=== PATIENT | male | born 1965 | race Hispanic/Latino ===

== ENCOUNTER 2020-10-14 11:58 | Emergency (ER) | payer BC ==
[~2020-10-14] VITALS: Ht 176.5 cm; Wt 89.8 kg
[2020-10-14] MEDS ORDERED: DIAZEPAM 5 MG TAB PO ONE (12:45)
[2020-10-14] MEDS ORDERED: KETOROLAC TROMETHAMINE 60 MG/2 ML VIAL IM ONE (12:45)
[2020-10-14] MEDS ORDERED: HYDROCODONE/APAP 7.5MG-325MG 1 EA TAB PO ONE (12:45)
--- NOTE | 2020-10-14 13:07 | Emergency Department Note ---
History of Present Illnes History of Present Illness Chief Complaint: Back Pain History of Present Illness This is a 55 year old male Pt arrived to the ER with c/o lower center back pain x2 days. Describes as a sharp constant pain. Denies any injury. States at one point he had a sharp pain that ran down his left leg. reports pain is worse with movement. Denies loss of bowel or bladder. Reports last dose of Ibuprofen was today 0700. No trauma. Historian: Patient Arrival Mode: Car [employer] Administrator Required: No Onset (how long ago): day(s) (2) Location: lower back Quality: pain Radiation: Reports non-radiation Severity: severe Onset quality: sudden Timing of current episode: constant Progression: unchanged Chronicity: new Context: Denies recent illness Relieving factors: none Exacerbating factors: none Associated symptoms: Reports denies other symptoms Past Medical/Family History Physician Review I have reviewed the patient's past medical and family history. Any updates have been documented here. Past Medical History Recent Fever: No Clinical Suspicion of Infectio: No New/Unexplained Change in Ment: No Past Medical History: None Other Surgery: Exploratory abdominal surgery as a child Social History Smoking Cessation: Former smoker Counseling Performed: No Alcohol Use: None Any Illegal Drug Use: No TB Exposure/Symptoms: No Physically hurt or threatened: No Family History Family history of heart diseas: No Other Any Pre-Existing Lines (PICC,: No Review of Systems Review of Systems Constitutional: Reports no symptoms EENTM: Reports no symptoms Cardiovascular: Reports no symptoms Respiratory: Reports no symptoms Gastrointestinal: Reports no symptoms Genitourinary: Reports no symptoms Musculoskeletal: Reports as per HPI, Reports back pain Integumentary: Reports no symptoms Neurological: Reports no symptoms Psychological: Reports no symptoms Endocrine: Reports no symptoms Hematological/Lymphatic: Reports no symptoms Physical Exam Related Data Allergies: Coded Allergies: No Known Allergies (Unverified , 10/14/20) Triage Vital Signs Vital Signs Date Time Temp Pulse Resp B/P (MAP) Pulse Ox O2 Delivery O2 Flow Rate FiO2 10/14/20 12:01 98.3 74 17 148/90 98 Room Air Vital signs reviewed: Yes Physical Exam CONSTITUTIONAL Constitutional: Present well-developed, Present well-nourished HENT HENT: Present normocephalic, Present atraumatic, Present oropharynx clear/moist, Present nose normal HENT L/R: Present left ext ear normal, Present right ext ear normal EYES Eyes: Reports PERRL, Reports conjunctivae normal NECK Neck: Present ROM normal PULMONARY Pulmonary: Present effort normal, Present breath sounds normal CARDIOVASCULAR Cardiovascular: Present regular rhythm, Present heart sounds normal, Present capillary refill normal, Present normal rate GASTROINTESTINAL Abdominal: Present soft, Present nontender, Present bowel sounds normal GENITOURINARY Genitourinary: Present exam deferred SKIN Skin: Present warm, Present dry MUSCULOSKELETAL Musculoskeletal: Present ROM normal, Present tenderness (midline lumbar spine and bilat paraspinal muscle spasm), Present other (nl DTR's) NEUROLOGICAL Neurological: Present alert, Present oriented x 3, Present no gross motor or sensory deficits; Absent cranial nerve deficit, Absent sensory deficit, Absent weakness PSYCHOLOGICAL Psychological: Present mood/affect normal, Present judgement normal Results Imaging Imaging Comments pt refused Xrays Assessment & Plan Medical Decision Making MDM back pain Reassessment Reassessment Pain improved with meds, DC home with Toradol, Tyl #3, Robaxin, Medrol dose cara, F/U PCP Saturday Assessment & Plan Final Impression: (1) Low back pain Depart Disposition: HOME, SELF-CARE Last Vital Signs Date Time Temp Pulse Resp B/P (MAP) Pulse Ox O2 Delivery O2 Flow Rate FiO2 10/14/20 12:01 98.3 74 17 148/90 98 Room Air Medications in the ED Ketorolac Tromethamine 60 mg ONCE ONCE IM ; Start 10/14/20 at 12:45; Stop 10/14/20 at 12:46; Status DC Acetaminophen/ Hydrocodone Bitart 1 ea NOW ONCE PO ; Start 10/14/20 at 12:45; Stop 10/14/20 at 12:46; Status DC Diazepam 5 mg ONCE ONCE PO ; Start 10/14/20 at 12:45; Stop 10/14/20 at 12:46; Status DC FORTINO ALONZO MD Oct 14, 2020 13:07
--- OUTSIDE RECORDS SUMMARY | 2020-10-15 10:05 | XMS REPORT | Continuity of Care Document ---
Author Author [facility] t Organization [facility] Address [address] [place] [address] Phone Unavailable Care Team Providers Care Enrollment Representative Name Role Phone NONSTAFF PCP Unavailable Payers Payer Name Policy Type Policy Number Effective Date Expiration Date S kalyn [employer] [place] Ppo [id number] 2019 00:00:00 [facility] Problems Condition Name Condition Details Condition Category Status Onset Date Resolution Date Last Treatment Date Treating Clinician Comments Source Testicular hypofunction Testicular Hypofunction Problem Active 2020-09-09 00:00:[address] [facility] Body mass index 30+ - obesity Body Mass Index 30+ - Obesity Problem Active 2020-09-09 00:00:[address] [facility] Obesity Obesity Problem Active 2020-09-09 00:00:[address] [facility] Reducible umbilical hernia Reducible Umbilical Hernia Problem Active 2020-09-09 00:00:[address] [facility] Diverticulosis of colon Diverticulosis of Colon Problem Active 2020-09-09 00:00:[address] [facility] Increased estradiol level Increased Estradiol Level Problem Ac tive 2020-09-09 00:00:[address] [facility] Internal hemorrhoids Internal Hemorrhoids Problem Active 00:00:00 [facility] Pract ice Diverticulosis of sigmoid colon Diverticulosis of Sigmoid Colon Pro blem Active 2019-12-01 00:00:[address] [facility] Hypogonadotropic hypogonadism Hypogonadotropic Hypogonadism Problem Active 2019-10-16 00:00:[address] [facility] Secondary polycythemia Secondary Polycythemia Problem Active 2019-10-16 00:00:[address] [facility] Anxiety disorder Anxiety Disorder Problem Active 2019-10-16 00:00:[address] [facility] Dysthymia Dysthymia Problem Active 2019-10-16 00:00:[address] [facility] Primary erectile dysfunction Primary Erectile Dysfunction Problem Active 2019-10-16 00:00:[address] [facility] Elevated liver enzymes level Elevated Liver Enzymes Level Problem Active 2019-10-16 00:00:[address] [facility] Attention deficit hyperactivity disorder, 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, Predominantly Inattentive Type Problem Active 2019-05-22 00:00:[address] [facility] Estradiol excess Estradiol excess Disease Active 2018-10-07 00:00:00 Jassi Esparza Mixed hyperlipidemia Mixed hyperlipidemia Disease Active 00:00:00 Jassi Esparza Testicular hypogonadism Testicular hypogonadism Disease Active 2018-10-07 00:00:[address] Benign non-nodular prostatic hyperplasia Benign non-no dular prostatic hyperplasia Disease Active 2017-04-19 00:00:00 Jassi Esparza Erectile dysfunction Erectile dysfunction Disease Active 00:00:00 Jassi Esparza BMI 28.0-28.9,adult BMI 28.0-28.9,adult Disease Active 2017-04-19 00:00 :00 Jassi Esparza Degeneration of lumbar intervertebral disc Degeneratio n of lumbar intervertebral disc Disease Active 2017-04-19 00:00:00 Griselda Esparza Seasonal allergic rhinitis due to pollen Seasonal yevgeniy rgic rhinitis due to pollen Disease Active 2017-04-19 00:00:00 Griselda Esparza DDD (degenerative disc disease), lumbar DDD (degenerative di sc disease), lumbar Disease Active 2016-12-31 00:00:00 Jassi Esparza Acute midline low back pain without sciatica Acute mid line low back pain without sciatica Disease Active 2016-12-18 00:00:00 Silver Esparza Attention deficit disorder of adult with hyperactivity Attention deficit disorder of adult with hyperactivity Disease Active 2016-01-27 00:00:00 Jassi Esparza Low back pain Problem Active I [facility] Allergies, Adverse Reactions, Alerts This patient has no known allergies or adverse reactions. Family History Family Member Diagnosis Comments Start Date Stop Date Source Natural father No Known Problems Silver Esparza Natural mother No Known Problems Silver Esparza Social History Social Habit Start Date Stop Date Quantity Comments Source Sex Assigned At Silver Esparza Tobacco use and exposure 2018-10-07 00:00:00 2018-10-07 00:00:00 Radha Esparza Alcohol intake 2018-10-07 00:00:00 2018-10-07 00:00:00 Current non-drinker of alcohol (finding) Jassi Esparza Alcohol Comment 2016-08-28 00:00:00 2016-08-28 00:00:00 glass of wine every now and then Jassi Esaprza Smoking Status Start Date Stop Date Source Never smoker Jassi catalan Medications Ordered Medication Name Filled Medication Name Start Date Stop Da te Current Medication? Ordering Clinician Indication Dosage Frequency Signature (SIG) Comments Components Source dextroamphetamine-amphetamine (ADDERALL) 10 mg tablet 2018-11-07 00:00:00 Yes 20mg QD Take 2 tablets (20 mg total) by mouth daily for 30 days. Max Daily Amount: 20 mg Jassi Esparza dextroamphetamine-amphetamine (ADDERALL) 20 mg tablet 2018-11-06 00:00:00 Yes TAKE 1 TABLET BY MOUTH TWICE DAILY Jassi Esparza alprazolam 0.5 mg tablet Take 1 tablet every 8 hours b y oral route as needed. alprazolam 0.5 mg tablet Take 1 tablet every 8 hours by oral route as needed. No alprazolam 0.5 mg tablet Take 1 tablet every 8 hours by oral route as needed. [facility] mg tablet TAKE 1 TABLET BY MOUTH TWICE W MICKEY anastrozole 1 mg tablet TAKE 1 TABLET BY MOUTH TWICE WEEKLY No anastrozole 1 mg tablet TAKE 1 TABLET BY MOUTH TWICE WEEKLY [facility] dextroamphetamine-amphetamine 20 mg tabl et Take 1 tablet twice a day by oral route for 30 days. dextroamphetamine-amphetamine 20 mg tabl et Take 1 tablet twice a day by oral route for 30 days. No dextroamphetamine- amphetamine 20 mg tablet Take 1 tablet twice a day by oral route for [address] [facility] phentermine 37.5 mg tablet Take 1 tablet every day by oral route for 30 days. phentermine 37.5 mg tablet Take 1 tablet every day by oral route for 30 days. No 1 Q1D phentermine 37 .5 mg tablet Take 1 tablet every day by oral route for 30 days. [facility] tadalafil 20 mg tablet TAKE 1 TABLET DAILY NEEDED t adalafil 20 mg tablet TAKE 1 TABLET DAILY NEEDED No tadalafil 20 mg tablet TAKE 1 TABLET DAILY NEEDED [facility] testosterone cypionate 200 mg/mL intramu scular oil INJECT 1 ML EVERY WEEK BY INTRAMUSCULAR ROUTE. testosterone cypionate 200 mg/mL intramu scular oil INJECT 1 ML EVERY WEEK BY INTRAMUSCULAR ROUTE. No testosterone cypionate 200 mg/mL intramuscular oil INJECT 1 ML EVERY WEEK BY INTRAMUSCULAR ROUTE. [facility] Practice Vital Signs Vital Name Observation Time Observation Value Comments Source BP Diastolic 2020-09-09 00:00:00 87 mm[Hg] [facility] Height 2020-09-09 00:00:00 68.5 [in_i] [facility] BMI (Body Mass Index) 2020-09-09 00:00:00 31 kg/m2 [facility] BP Systolic 2020-09-09 00:00:00 135 mm[Hg] [facility] Body Weight 2020-09-09 00:00:00 207.2 [lb_av] [facility] BP Diastolic 2020-08-24 00:00:00 90 mm[Hg] [facility] Height 2020-08-24 00:00:00 68.5 [in_i] [facility] BMI (Body Mass Index) 2020-08-24 00:00:00 30.9 kg/m2 [facility] BP Systolic 2020-08-24 00:00:00 137 mm[Hg] [facility] Body Weight 2020-08-24 00:00:00 206.4 [lb_av] [facility] BP Diastolic 2020-05-09 00:00:00 85 mm[Hg] [facility] Height 2020-05-09 00:00:00 68.5 [in_i] [facility] BMI (Body Mass Index) 2020-05-09 00:00:00 29.3 kg/m2 [facility] BP Systolic 2020-05-09 00:00:00 130 mm[Hg] [facility] Body Weight 2020-05-09 00:00:00 195.8 [lb_av] [facility] BP Diastolic 2020-01-19 00:00:00 82 mm[Hg] [facility] Height 2020-01-19 00:00:00 68.5 [in_i] [facility] BMI (Body Mass Index) 2020-01-19 00:00:00 30.1 kg/m2 [facility] BP Systolic 2020-01-19 00:00:00 127 mm[Hg] [facility] Body Weight 2020-01-19 00:00:00 201.2 [lb_av] [facility] BP Diastolic 2019-12-21 00:00:00 83 mm[Hg] [facility] Height 2019-12-21 00:00:00 68.5 [in_i] [facility] BMI (Body Mass Index) 2019-12-21 00:00:00 29.5 kg/m2 [facility] BP Systolic 2019-12-21 00:00:00 120 mm[Hg] [facility] Body Weight 2019-12-21 00:00:00 197.2 [lb_av] [facility] BP Diastolic 2019-10-16 00:00:00 89 mm[Hg] [facility] Height 2019-10-16 00:00:00 68.5 [in_i] [facility] BMI (Body Mass Index) 2019-10-16 00:00:00 29.4 kg/m2 [facility] BP Systolic 2019-10-16 00:00:00 135 mm[Hg] [facility] Body Weight 2019-10-16 00:00:00 196.4 [lb_av] [facility] BP Diastolic 2019-05-22 00:00:00 84 mm[Hg] [facility] Height 2019-05-22 00:00:00 70 [in_i] [facility] BMI (Body Mass Index) 2019-05-22 00:00:00 28 kg/m2 [facility] BP Systolic 2019-05-22 00:00:00 135 mm[Hg] [facility] Body Weight 2019-05-22 00:00:00 194.8 [lb_av] [facility] BP Diastolic 2019-02-06 00:00:00 68 mm[Hg] [facility] Height 2019-02-06 00:00:00 70 [in_i] [facility] BMI (Body Mass Index) 2019-02-06 00:00:00 28.4 kg/m2 [facility] BP Systolic 2019-02-06 00:00:00 132 mm[Hg] [facility] Body Weight 2019-02-06 00:00:00 198 [lb_av] [facility] Oxygen saturation by Pulse oximetry 2020-10-14 14:26:00 100 /min [facility] Weight 2020-10-14 12:01:00 198 [lb_av] [facility] BMI (Body Mass Index) 2020-10-14 12:01:00 28.8 kg/m2 [facility] Procedures Procedure Date / Time Performed Performing Clinician Sourc e electrocardiogram 2020-09-09 00:00:00 [facility] X-RAY OF ABDOMEN 1 VIEW 2020-08-24 00:00:00 [facility] CT, abdomen + pelvis, w/ contrast 2020-08-24 00:00:[address] [facility] Colonoscopy 2019-11-26 00:00:00 [facility] Plan of Care Planned Activity Planned Date Details Comments Source Diagnostic Test Pending 2020-09-09 00:00:00 urinalysis, dips tick [code = urinalysis, dipstick] [facility] Diagnostic Test Pending 2020-09-09 00:00:00 CBC w/ auto diff [code = CBC w/ auto diff] [facility] Diagnostic Test Pending 2020-09-09 00:00:00 CMP, serum or pl asma [code = CMP, serum or plasma] [facility] Diagnostic Test Pending 2020-09-09 00:00:00 lipid panel, ser um [code = lipid panel, serum] [facility] Diagnostic Test Pending 2020-09-09 00:00:00 TSH, serum or pl asma [code = TSH, serum or plasma] [facility] Diagnostic Test Pending 2020-09-09 00:00:00 PSA, serum or pl asma [code = PSA, serum or plasma] [facility] Diagnostic Test Pending 2020-09-09 00:00:00 hepatitis C viru s RNA, quant, PCR, serum or plasma [code = hepatitis C virus RNA, quant, PCR, serum or plasma] [facility] Diagnostic Test Pending 2020-09-09 00:00:00 testosterone, fr ee + total, serum [code = testosterone, free + total, serum] [facility] Test Pending 2020-09-09 00:00:00 estradiol, serum [code = estradiol, serum] [facility] Future Scheduled Test 2020-06-25 00:00:00 INFLUENZA VACCINE [code = INFLUENZA VACCINE] [facility] Scheduled Test 2016 00:00:00 COLONOSCOPY SCREEN ING [code = COLONOSCOPY SCREENING] [facility] Scheduled Test 2016 00:00:00 SHINGLES VACCINES (#1) [code = SHINGLES VACCINES (#1)] [facility] Back Pain [facility] Encounters Start Date/Time End Date/Time Encounter Type Admission Type Attendi [facility] Care Department Encounter ID Source 2020-10-14 12:20:00 2020-10-14 14:28:00 Departed Emergency Room [facility] [id number] [facility] 2020-09-09 00:00:00 2020-09-09 00:00:00 Misha Esteban MD: [address], [place] [address], Ph. V FP OR - [facility] - [facility] [id number] [facility] 2020-08-24 00:00:00 2020-08-24 00:00:00 Misha Esteban MD: [address], [place] [address], Ph. V FP OR - [facility] - [facility] [place] [id number] [facility] 2020-05-09 00:00:00 2020-05-09 00:00:00 Misha Esteban MD: [address], [place] [address], Ph. V FP OR - [facility] - [facility] [id number] [facility] 2020-05-07 00:00:00 2020-05-07 00:00:00 Candido Gay MD: [id number] [facility], [address], [place] [address], Ph. VFP OR - [facility] - [facility] [id number] [facility] 2020-01-19 00:00:00 2020-01-19 00:00:00 Misha Esteban MD: [address], [place] [address], Ph. V FP [facility] - [facility] [id number] [facility] 2019-12-21 00:00:00 2019-12-21 00:00:00 Misha Esteban MD: [address], [place] [address], Ph. V [facility] - [facility] [id number] [facility] 2019-10-16 00:00:00 2019-10-16 00:00:00 Misha Esteban MD: [address], [place] [address], Ph. V [facility] - [facility] [id number] [facility] 2019-05-22 00:00:00 2019-05-22 00:00:00 Misha Esteban MD: [address], [place] [address], Ph. V [facility] - [facility] [id number] [facility] 2019-02-06 00:00:00 2019-02-06 00:00:00 Misha Esteban MD: [address] [facility], [address], [place] [address], Ph. [facility] [id number] [facility] Results This patient has no known results.
== END 2020-10-14 14:28 | disposition home or self-care (01) ==
LOC: ER 12:20
DX: M54.5 Low back pain (principal)
CPT/HCPCS: 99282; J1885

== ENCOUNTER 2023-04-24 12:03 | Emergency (ER) | payer BC ==
[~2023-04-24] VITALS: Ht 175.3 cm; Wt 89.8 kg
[2023-04-24 12:22] VITALS: O2SAT 98
[2023-04-24] MEDS ORDERED: KETOROLAC TROMETHAMINE 60 MG/2 ML VIAL IM ONE (13:15)
[2023-04-24] MEDS ORDERED: PREDNISONE 20 MG TAB PO ONE (13:15)
[2023-04-24] MEDS ORDERED: KETOROLAC TROMETHAMINE 60 MG/2 ML VIAL ONE (13:35)
[2023-04-24] MEDS ORDERED: PREDNISONE 20 MG TAB ONE (13:35)
[2023-04-24] MEDS ORDERED: PREDNISONE50 MG PO (13:41)
[2023-04-24] MEDS ORDERED: CYCLOBENZAPRINE10 MG PO (13:41)
[2023-04-24] MEDS ORDERED: ULTRAM 50MG50 MG PO (13:46)
== END 2023-04-24 14:07 | disposition home or self-care (01) ==
LOC: FSED 12:07
DX: M54.16 Radiculopathy, lumbar region (principal); M62.830 Muscle spasm of back; F98.8 Other specified behavioral and emotional disorders with onset usually occurring in childhood and adolescence; G89.29 Other chronic pain
CPT/HCPCS: 99282; J1885; J7512

== ENCOUNTER 2023-10-22 19:27 | Emergency (ER) | payer BC ==
[~2023-10-22] VITALS: Ht 175.3 cm; Wt 89.8 kg
[~2023-10-22 19:27] MED LIST: CYCLOBENZAPRINE10 MG PO; PREDNISONE50 MG PO; ULTRAM 50MG50 MG PO
[2023-10-22] MEDS ORDERED: KETOROLAC TROMETHAMINE 30 MG/ML VIAL IV STA (20:32)
[2023-10-22] MEDS ORDERED: ONDANSETRON HCL INJ 2MG/ML 2ML 2 MG/ML VIAL IV STA (20:37)
[2023-10-22] MEDS ORDERED: SODIUM CHLORIDE 0.9% 1000ML 1,000 ML IV ONE (20:45)
[2023-10-22] MEDS ORDERED: CEFTRIAXONE 1 GM VIAL IM ONE (20:45)
[2023-10-22] MEDS ORDERED: ONDANSETRON HCL INJ 2MG/ML 2ML 2 MG/ML VIAL ONE (21:09)
[2023-10-22] MEDS ORDERED: KETOROLAC TROMETHAMINE 30 MG/ML VIAL ONE (21:09)
[2023-10-22] MEDS ORDERED: SODIUM CHLORIDE 0.9% 1000ML 1,000 ML ONE (21:09)
[2023-10-22] MEDS ORDERED: CEFTRIAXONE 1 GM VIAL ONE (21:10)
[2023-10-22] MEDS ORDERED: CEFPODOXIME PR200 MG PO (21:58)
[2023-10-22 22:34] VITALS: BP 138/79; PULSE 82; RESP 16; TEMP 97.9
[2023-10-22 22:36] VITALS: O2SAT 100
== END 2023-10-22 22:35 | disposition home or self-care (01) ==
LOC: FSED 19:34
DX: R31.9 Hematuria, unspecified (principal); N12 Tubulo-interstitial nephritis, not specified as acute or chronic; N13.30 Unspecified hydronephrosis; R10.30 Lower abdominal pain, unspecified; K57.90 Diverticulosis of intestine, part unspecified, without perforation or abscess without bleeding; N40.0 Benign prostatic hyperplasia without lower urinary tract symptoms; M54.9 Dorsalgia, unspecified; G89.29 Other chronic pain
CPT/HCPCS: 74176; 87040; 87086; 99284; J0696; J1885; J2405; J7030

== ENCOUNTER 2025-03-20 03:52 | Emergency (ER) | payer BC ==
[~2025-03-20] VITALS: Ht 175.3 cm; Wt 89.8 kg
[~2025-03-20 03:52] MED LIST changes: +CEFPODOXIME PR200 MG PO
[2025-03-20 03:55] VITALS: PULSE 90; RESP 17; TEMP 98.6
[2025-03-20] MEDS: MAGNESIUM/ALUMINUM/SIMETHICONE 30 ML UDC PO ONE (05:09)
[2025-03-20] MEDS: LIDOCAINE VISC 2% SOLN 15 ML UDC PO ONE (05:09)
[2025-03-20 05:38] VITALS: BP 157/97; RESP 17; TEMP 98.6; O2SAT 97
== END 2025-03-20 05:41 | disposition home or self-care (01) ==
LOC: FSED 03:55
DX: R10.13 Epigastric pain (principal); K21.9 Gastro-esophageal reflux disease without esophagitis; R45.82 Worries; R94.31 Abnormal electrocardiogram [ECG] [EKG]; Z87.442 Personal history of urinary calculi
CPT/HCPCS: 93005; 99284